=== PATIENT | female | born 1995 | race African-American/Black ===

== ENCOUNTER 2018-10-06 20:36 | Emergency (ER) | payer SELFPAY ==
--- NOTE | 2018-10-06 21:48 | ER Document Report ---
ED General - General Chief Complaint: Numbness Stated Complaint: NUMBNESS Time Seen by Provider: 10/06/18 21:39 Cannot obtain history due to: Intoxicated Notes: Patient is a 23-year-old female with a history of bipolar disorder, presents complaining of feeling very anxious and diffusely numb after smoking marijuana. Patient states that her symptoms started almost immediately after smoking marijuana has been ongoing since that time. Nothing seems to improve or worsen the symptoms. Does arrive by EMS. Denies ever having similar symptoms when smoking marijuana in the past. History somewhat limited secondary to the patient's intoxication. Denies any current chest pain or shortness of breath. Declines anxiolysis. Past Medical History - General Information source: Patient - Social History Smoking Status: Current Every Day Smoker Frequency of alcohol use: Occasional Drug Abuse: Marijuana Family History: Reviewed & Not Pertinent Review of Systems - Review of Systems Notes: Constitutional: Negative for fever. Positive for tremulousness HENT: Negative for sore throat. Eyes: Negative for visual changes. Cardiovascular: Negative for chest pain. Respiratory: Negative for shortness of breath. Gastrointestinal: Negative for abdominal pain, vomiting or diarrhea. Genitourinary: Negative for dysuria. Musculoskeletal: Negative for back pain. Skin: Negative for rash. Neurological: Negative for headaches, weakness or numbness. 10 point ROS negative except as marked above and in HPI. Physical Exam - Vital signs Vitals: Resp Pulse Ox 26 H 98 10/06/18 20:43 10/06/18 20:43 Interpretation: Tachycardic, Tachypneic Notes: PHYSICAL EXAMINATION: GENERAL: Well-appearing, well-nourished and in no acute distress. HEAD: Atraumatic, normocephalic. EYES: Pupils equal round and reactive to light, extraocular movements intact, sc handy anicteric, conjunctiva are normal. ENT: nares patent, oropharynx clear without exudates. Moist mucous membranes. NECK: Normal range of motion, supple without lymphadenopathy LUNGS: Breath sounds clear to auscultation bilaterally and equal. No wheezes rales or rhonchi. HEART: Regular tachycardia without murmurs ABDOMEN: Soft, nontender, normoactive bowel sounds. No guarding, no rebound. No masses appreciated. EXTREMITIES: Normal range of motion, no pitting or edema. No cyanosis. NEUROLOGICAL: Face symmetric. Tongue protrudes midline. Extraocular motions intact. Pupils are 2 mm and equally reactive. Normal speech, normal gait. 5 out of 5 strength in both the distal and proximal upper and lower extremities bilaterally. Sensation is grossly intact throughout. PSYCH: Anxious, somewhat tremulous SKIN: Warm, Dry, normal turgor, no rashes or lesions noted. Course - Re-evaluation Re-evalutation: 10/07/18 05:05 Patient presents with perceptual disturbances after smoking marijuana. This appears likely secondary to isolated marijuana intoxication versus possible contamination of marijuana with an amphetamine of some variant. Patient is otherwise well in appearance. No focal neurologic deficits on exam. Screening exam completely reassuring. Vitals show mild tachycardia consistent with marijuana intoxication. Patient was concerned that she could be . Urine test is negative. No indication for further labs or imaging. EKG unremarkable. At this time will discharge with return precautions and follow-up recommendations. Verbal discharge instructions given a the bedside and opportunity for questions given. Medication warnings reviewed. Patient is in agreement with this plan and has verbalized understanding of return precautions and the need for primary care follow-up in the next 24-72 hours. - Vital Signs Vital signs: Temp Pulse Resp BP Pulse Ox 19 116/65 99 10/06/18 22:45 10/06/18 22:45 10/06/18 22:45 - EKG Interpretation by Me Additional EKG results interpreted by me: 10/07/18 05:06 Sinus rhythm, rate 89. No ST elevations or depressions. QTC is 424. Discharge - Discharge Clinical Impression: Marijuana abuse Marijuana intoxication Qualifiers: Complication of substance-induced condition: with perceptual disturbance Qualified Code(s): F12.922 - Cannabis use, unspecified with intoxication with perceptual disturbance Condition: Good Disposition: HOME, SELF-CARE Additional Instructions: You were seen today after having an adverse reaction to marijuana which may or may not have been laced with an additional substance. Your evaluation here is unremarkable. Please avoid drug use in the future. Return for any additional concerns.
--- NOTE | 2018-10-06 22:36 | EKG REPORT ---
SEVERITY:- BORDERLINE ECG - SINUS RHYTHM BORDERLINE T ABNORMALITIES, INFERIOR LEADS : Confirmed by: Arlette Tello 06-Oct-2018 22:35:19
[2018-10-06 22:49] VITALS: BP 116/65
== END 2018-10-06 22:47 | disposition home or self-care (01) ==
LOC: ER 20:36
DX: F12.10 Cannabis abuse, uncomplicated (principal); R20.0 Anesthesia of skin; F41.9 Anxiety disorder, unspecified; F17.200 Nicotine dependence, unspecified, uncomplicated
CPT/HCPCS: 81025; 93005; 93010; 99284